=== PATIENT | male | born 2000 | race Caucasian/White ===

== ENCOUNTER 2020-11-14 03:30 | Inpatient (IN) | payer OTHER ==
[~2020-11-14] VITALS: Ht 180.3 cm; Wt 69.6 kg
[2020-11-14 04:14] LABS: HEMATOCRIT 44.7 % (42.0-52.0); HEMOGLOBIN 15.6 g/dl (13.5-17.5); MEAN CORPUSCULAR HEMOGLOBIN 34.7 pg (27.0-33.0); MEAN CORPUSCULAR HGB CONC 34.9 g/dl (32.0-36.5); MEAN CORPUSCULAR VOLUME 99.3 fl (80.0-96.0); PLATELET COUNT, AUTOMATED 266 10^3/uL (150-450); WHITE BLOOD COUNT 7.9 10^3/uL (4.0-10.0)
[2020-11-14 04:58] LABS: ALBUMIN 4.6 GM/DL (3.2-5.2); ALT/SGPT 32 U/L (12-78); BILIRUBIN,DIRECT 0.2 MG/DL (0.0-0.2); BILIRUBIN,TOTAL 0.7 MG/DL (0.2-1.0); BLOOD UREA NITROGEN 10 MG/DL (7-18); CALCIUM LEVEL 8.9 MG/DL (8.5-10.1); CARBON DIOXIDE LEVEL 32 MEQ/L (21-32); CHLORIDE LEVEL 113 MEQ/L (98-107); CREATININE FOR GFR 0.84 MG/DL (0.70-1.30); ETHYL ALCOHOL (ETHANOL) 0.238 % (0.000-0.010); GLOMERULAR FILTRATION RATE > 60.0 (>60); GLUCOSE, FASTING 95 MG/DL (70-100); POTASSIUM SERUM 4.3 MEQ/L (3.5-5.1); SALICYLATE LEVEL < 1.7 MG/DL (5.0-30.0); SODIUM LEVEL 146 MEQ/L (136-145); THYROID STIMULATING HORMONE 0.513 uIU/ML (0.358-3.740); TOTAL PROTEIN 8.1 GM/DL (6.4-8.2)
[2020-11-14 04:59] LABS: ACETAMINOPHEN LEVEL < 2.0 UG/ML (10.0-30.0)
[2020-11-14 10:16] LABS: AMPHETAMINES LEVEL URINE NEGATIVE (NEGATIVE); BARBITURATES URINE NEGATIVE (NEGATIVE); BENZODIAZEPINES URINE NEGATIVE (NEGATIVE); CANNABINOIDS URINE NEGATIVE (NEGATIVE); COCAINE METABOLITE URINE NEGATIVE (NEGATIVE); METHADONE URINE NEGATIVE (NEGATIVE); OPIATES URINE NEGATIVE (NEGATIVE); PHENCYCLIDINE URINE NEGATIVE (NEGATIVE)
[2020-11-14] MEDS ORDERED: HOME MED LIST COMPLETE! XX SCH (12:20)
[2020-11-14] MEDS ORDERED: MAALOX 30 ML SUSP *UDC PO PRN (14:00)
[2020-11-14] MEDS ORDERED: MOM 30ML SUSPENSION UDC PO PRN (14:00)
[2020-11-14] MEDS ORDERED: traZODone 50 MG TAB PO PRN (14:00)
[2020-11-14] MEDS ORDERED: ACETAMINOPHEN TAB 650MG DOSE (2X325MG) PO PRN (14:00)
[2020-11-14 14:11] LABS: RSV AMPLIFICATION NEGATIVE (NEGATIVE)
[2020-11-14 15:48] VITALS: BP 115/74
[2020-11-14] MEDS: NICOTINE 21MG/24HR 1 EA TRANSDERMAL TD SCH (16:01)
[2020-11-15 06:00] VITALS: BP 129/57
[2020-11-15] MEDS: NICOTINE 21MG/24HR 1 EA TRANSDERMAL TD SCH (09:18)
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
[2020-11-15 16:35] VITALS: BP 121/68
--- NOTE | 2020-11-15 16:58 | HPEPDOC ---
General Date of Admission Nov 14, 2020 at 13:57 Date of Service: Nov 15, 2020 Attending Physician: AMAURY GREEN MD Chief Complaint The patient is a 20-year-old male admitted with a reason for visit of Adjustment Disorder. Source: Patient, RN notes reviewed Exam Limitations: No limitations History of Present Illness 20 yo active member, who was brought into the ED by police after arrest of driving under the influence and making suicidal statements after that, meanwhile reporting recent psychosocial stressors and after basic labs wnl except elevated alcohol levels and unrevealing physical examination was admitted to the [facility] and medicine is consulted for medical H&P. Home Medications No Active Prescriptions or Reported Meds Allergies Coded Allergies: No Known Allergies (Unverified , 11/14/20) Past Medical History Medical History PTSD Surgical History None Social History * Smoker: current smoker Alcohol: heavy Drugs: denies A-FIB/CHADSVASC A-FIB History Current/History of A-Fib/PAF?: No Current PO Anticoag Therapy: No Age/Risk Factor Scoring CHADSVASC: CHADSVASC Response (Comments) Value Age Risk Factor Age < 65 years old 0 Gender Risk Factor Male 0 Hx of CHF No 0 Hx of HTN No 0 Hx of Stroke/TIA/or VTE No 0 Hx of Diabetes No 0 Hx of Vascular Disease No 0 Total 0 Treatment Treatment ordered: NONE Reason Anticoagulant not given: Not indicated/[id number] Review of Systems Constitutional: Denies: Chills, Fever, Night Sweats Eyes: Denies: Pain, Vision change ENT: Denies: Head Aches, Ear Pain, Dysphagia Skin: Denies: Rash, Lesions, Breakdown Pulmonary: Denies: Dyspnea, Cough Cardiovascular: Denies: Chest Pain, Palpitations, Orthopnea, Paroxysmal Noc. Dyspnea, Lt Headedness Gastrointestinal: Denies: Nausea, Vomiting, Abdominal Pain, Diarrhea Genitourinary: Denies: Dysuria, Frequency, Incontinence, Retention Hematologic: Denies: Bruising, Bleeding Excessively Endocrine: Denies: Polydipsia, Polyphagia, Polyuria, Heat Intolerance, Cold Intolerance, Other Endocrine Sx Musculoskeletal: Denies: Neck Pain, Back Pain, Joint Pain, Muscle Pain, Spasms Neurological: Denies: Weakness, Numbness, Change in speech, Confusion Psych: Reports: Depression, Anger Physical Examination General Exam: Positive: Alert, No Acute Distress Eye Exam: Positive: PERRLA, Conjunctiva & lids normal, EOMI; Negative: Sclera icteric ENT Exam: Positive: Atraumatic, Mucous membr. moist/pink, Pharynx Normal Neck Exam: Positive: Supple; Negative: JVD, thyromegaly Chest Exam: Positive: Clear to auscultation, Normal air movement Heart Exam: Positive: Rate Normal, Regular Rhythm, Normal S1, Normal S2; Negative: Murmurs, Rubs Abdomen Exam: Positive: Normal bowel sounds, Soft; Negative: Tenderness, Hepatospenomegaly Extremity Exam: Positive: Normal pulses; Negative: Clubbing, Cyanosis, Edema Skin Exam: Positive: Nl turgor and temperature; Negative: Breakdown, Lesion Neuro Exam: Positive: Normal Gait, Normal Speech, Cranial Nerves 3-12 NL, Reflexes 2+ Psych Exam: Positive: Oriented x 3 Vital Signs Vital Signs Date Time Temp Pulse Resp B/P (MAP) Pulse Ox O2 Delivery O2 Flow Rate FiO2 11/15/20 06:00 97.6 65 18 129/57 (81) 98 Room Air Assessment/Plan 20 yo active member, who was brought into the ED by police after arrest of driving under the influence and making suicidal statements after that, meanwhile reporting recent psychosocial stressors and after basic labs wnl except elevated alcohol levels and unrevealing physical examination was admitted to the [facility] and medicine is consulted for medical H&P. Plan: PTSD and what appears to be adjustment disorder - plan per primary psych team. Nicotine addiction: -counselled to consider quitting -nicotine patch is already ordered DVT ppx: ambulatory Medicine will sign off at this time. Problems (1) Adjustment disorder with depressed mood (2) Alcohol abuse Status: Acute Plan / VTE VTE Prophylaxis Ordered?: No VTE Exclusion Mechanical Proph: Low Risk for VTE VTE Exclusion Pharmacological: At Low Risk for VTE AMAURY GREEN MD Nov 15, 2020 14:36
[2020-11-15] MEDS ORDERED: ESCITALOPRAM OXALATE 10 MG TAB (LEXAPRO) PO SCH (21:00)
[2020-11-15] MEDS ORDERED: PRAZOSIN 1 MG CAP PO SCH (21:00)
[2020-11-16 07:10] VITALS: BP 108/57
[2020-11-16] MEDS: NICOTINE 21MG/24HR 1 EA TRANSDERMAL TD SCH (09:35)
[2020-11-16] MEDS ORDERED: NICO21PAT TD (09:37)
[2020-11-16] MEDS ORDERED: LEXA1TAB PO (09:37)
[2020-11-16] MEDS ORDERED: MINI1CAP PO (09:37)
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
== END 2020-11-16 13:00 | disposition home or self-care (01) | DRG 881 ==
LOC: M ED 03:30 → M ED INP 13:57 → M PSY 15:00
PROVIDERS: ADMIT Psychiatry & Neurology Psychiatry; ATTEND Psychiatry & Neurology Psychiatry
DX: F43.21 Adjustment disorder with depressed mood (principal); F10.10 Alcohol abuse, uncomplicated; F17.200 Nicotine dependence, unspecified, uncomplicated